=== PATIENT | male | born 1980 | race Asian ===

== ENCOUNTER 2017-01-11 20:34 | Emergency (ER) | payer SELFPAY ==
[~2017-01-11] VITALS: Ht 172.7 cm; Wt 77.1 kg
[~2017-01-11 20:34] MED LIST: fentaNYL 100 mcg/2 mL IV ONE
--- NOTE | 2017-01-11 20:34 | Emergency Room Report ---
History of Present Illness Present Illness HPI 36YOM BIBEMS with suspected "allergic reaction" with diffuse rash to face, torso , extremities assoc with "9/10 severe abdominal pain" without nausea/vomiting, diarrhea, fever/chills, urinary complaints. Had had "this rash" before. Denies taking any medications but states "sometimes takes aspirin." Denies new antibiotics, sick contacts, recent travel, travel to wooded areas. Denies blistering, joint pain. Known allergy to shellfish but didnt have shellfish recently. (MYRNA DOWNING M.D.) Allergies: Coded Allergies: SHELLFISH DERIVED (Verified Allergy, Unknown, 01/11/17) Patient History Past Medical History: other - "chronic rash" Past Surgical History: none Pertinent Family History: none Social History: Denies: alcohol use, drug use, smoking Immunizations: UTD Reviewed Nursing Documentation: PMH: Agreed, PSxH: Agreed (MYRNA DOWNING M.D.) Review of Systems All Other Systems: negative except mentioned in HPI (MYRNA DOWNING M.D.) Physical Exam Sp02 EP Interpretation: reviewed, abnormal General Appearance: normal inspection, well appearing, alert, GCS 15, non-toxic , mild distress Head: normocephalic, atraumatic Eyes: bilateral eye EOMI, bilateral eye PERRL ENT: normal ENT inspection, hearing grossly normal, normal voice Neck: normal inspection, full range of motion, supple, no bony tend Respiratory: normal inspection, lungs clear, normal breath sounds, no respiratory distress, no retraction, no wheezing Cardiovascular #1: regular rate, rhythm, no edema Gastrointestinal: normal inspection, normal bowel sounds, non tender, soft, no guarding, no hernia Genitourinary: normal inspection Musculoskeletal: normal inspection, back normal, normal range of motion, Mayra' s Sign negative Neurologic: normal inspection, alert, oriented x3, responsive, nursing assistant III-XII nml as tested, motor strength/tone normal, speech normal Psychiatric: normal inspection, judgement/insight normal, mood/affect normal Skin: other - diffuse rash of thick bright erythema border with central clearing without central papule/nodule in patchwork constellation most prominent on chest, torso, extremities but also on face Lymphatic: normal inspection (MYRNA DOWNING M.D.) Medical Decision Making Diagnostic Impression: Primary Impression: Rash Additional Impressions: Abdominal pain Qualified Codes: R10.84 - Generalized abdominal pain AMA ER Course 36YOM with diffuse rash - erythema marginatum vs erythema multiforme however no central papule/nodule. VS notable for tachycardia on arrival Afebrile No blisters No recent new medications Associated with severe abd pain without nausea/vomiting No past surgical history No peritoneal signs on exam Initial labs and CTAP ordered upon arrival, at time of signout Endorsed to Dr Bowman at 9pm to followup labs, CTAP and determine ultimate disposition of patient. (MYRNA DOWNING M.D.) ER Course Please see note from Dr. Downing. Patient refusing IV and further evaluation. (Rash looks like erythema multiforme to me. Abdominal pain is epigastric. H/O rash 4-5 years - possibly urticarial - not seek medical treatment.) I discussed risk of with patient. He states he is too upset to have IV and further evaluation (after asking for time to prepare himself for IV). Patient insisted on leaving ED AMA. Invited to return if he changes his mind. (Josh Bowman M.D.) Last Vital Signs Date Time Temp Pulse Resp B/P Pulse Ox O2 Delivery O2 Flow Rate FiO2 01/11/17 22:12 99.1 20 107/68 95 Room Air 01/11/17 20:26 118 Status: improved (Josh Bowman M.D.) Disposition: AGAINST MEDICAL ADVICE Condition: Stable MYRNA DOWNING M.D. January 11, 2017 20:34 Josh Bowman M.D. January 12, 2017 10:03
[2017-01-11 22:12] VITALS: BP 107/68
== END 2017-01-11 22:17 | disposition left against medical advice (07) ==
LOC: EDBD 20:34 → EDBEDREQ 21:03 → EMR 21:20
DX: R21 Rash and other nonspecific skin eruption (principal); R10.84 Generalized abdominal pain; Z91.013 Allergy to seafood; R00.0 Tachycardia, unspecified
CPT/HCPCS: 99282